=== PATIENT | female | born 1985 | race African-American/Black ===

== ENCOUNTER 2025-06-02 19:57 | Emergency (ER) | payer OTHER ==
[2025-06-02 20:11] VITALS: BP 131/98; PULSE 85; RESP 19; TEMP 98.3; BMI 29.7
[2025-06-02 20:51] LABS: ABSOLUTE IMMATURE GRANULOCYTES 0.03 x10^3/uL (0.0-0.031); BASOPHILS # 0.04 x10^3/uL (0.01-0.08); EOSINOPHIL % 1.3 % (0.7-5.8); EOSINOPHILS # 0.11 x10^3/uL (0.04-0.36); MCHC 30.8 g/dl (32.2-35.5); MEAN CELL VOLUME 73.7 fl (79.4-94.8); MEAN PLT VOLUME 9.6 fl (9.4-12.3); MONOCYTE # 0.85 x10^3/uL (0.24-0.86); MONOCYTE % 10.3 % (4.7-12.5); RDW 15.9 % (12.1-16.8)
[2025-06-02] MEDS: LACTATED RINGERS SOLUTION 1000 ML INFUS.BAG IV ONE (21:11)
[2025-06-02] MEDS ORDERED: ACETAMINOPHEN INJECTION 100 ML ONE (22:44)
[2025-06-02] MEDS: ACETAMINOPHEN 1000 MG/100 ML BAG IVPB ONE (22:52)
[2025-06-02 22:59] LABS: CO2 25.0 mmol/L (21-32); GLUCOSE,RANDOM 101.0 mg/dL (74-106)
[2025-06-02 23:02] LABS: CREATININE 1.0 mg/dL (0.55-1.3); SGOT/AST 20.0 U/L (15-37); SGPT/ALT 17.0 U/L (13-61)
[2025-06-02 23:04] LABS: TOT PROT 7.8 g/dl (6.4-8.2)
[2025-06-02 23:05] LABS: ALK PHOS 73.0 U/L (45-117)
[2025-06-03 00:36] LABS: HCV DIAGNOSTIC IN-HOUSE W/RFLX NON-REACTIVE (NONREACTIVE)
[2025-06-03 00:42] LABS: HIV INTERPRETATION NEGATIVE (NEGATIVE)
== END 2025-06-03 00:25 | disposition home or self-care (01) ==
LOC: JER 19:57
PROC: 3E033NZ Introduction of Analgesics, Hypnotics, Sedatives into Peripheral Vein, Percutaneous Approach (ICD-10-PCS; principal; 2025-06-02)
DX: R19.7 Diarrhea, unspecified (principal); K62.5 Hemorrhage of anus and rectum; R10.30 Lower abdominal pain, unspecified
CPT/HCPCS: 36415; 74177-TC; 80053; 82272; 84703; 85025; 86803; 87389; 96374; 99285-25